=== PATIENT | female | born 1930 | race Caucasian/White ===

== ENCOUNTER 2017-01-26 17:23 | Inpatient (IN) | payer MEDICARE, MEDICAID ==
[~2017-01-26] VITALS: Ht 147.3 cm; Wt 61.7 kg
[~2017-01-26 17:23] MED LIST: ALBU8HFA4 NEB; ASPI81TA31 PO; ATEN25TA PO; BUPR-51 PO; CEFT1PIG2 IV; CHOL100030 PO; HYDR12.5 PO; IPRA0.2S48 NEB; NIAC500T2 PO; OMEP20TA68 PO; SIMV40TA5 PO; STOOL SOFTENER PO
[2017-01-26] MEDS ORDERED: IV NORMAL SALINE 500 ML BAG IV ONE (17:45)
[2017-01-26] MEDS ORDERED: IPRATROPIUM BROMIDE 0.5 MG/2.5 ML NEBU NEB ONE (17:45)
[2017-01-26] MEDS ORDERED: ALBUTEROL SULFATE 2.5 MG/3 ML NEBU NEB ONE (17:45)
--- NOTE | 2017-01-26 17:47 | NUR ---
IV PLACED, 500ML 0.9NS BOLUS INFUSING, MONITOR SHOWS NSR, PO2=92% ON ROOM AIR, PT PRESENTLY RECEIVING RESP TX, PTY'S DAUGHTER AT THE BEDSIDE. LAB ANISHA BLOOD, CXR DONE.
[2017-01-26] MEDS ORDERED: IPRATROPIUM BROMIDE 0.5 MG/2.5 ML NEBU ONE (17:48)
[2017-01-26] MEDS ORDERED: ALBUTEROL SULFATE 2.5 MG/3 ML NEBU ONE (17:48)
[2017-01-26] MEDS ORDERED: BISA10SU12 RC (18:01)
[2017-01-26] MEDS ORDERED: NA P133E RC (18:01)
[2017-01-26] MEDS ORDERED: DOCU-25 PO (18:01)
[2017-01-26] MEDS ORDERED: SIMV20TA6 PO (18:01)
[2017-01-26] MEDS ORDERED: MAGN200T5 PO (18:01)
[2017-01-26] MEDS ORDERED: LEVO25TA2 PO (18:01)
[2017-01-26] MEDS ORDERED: METF500T4 PO (18:01)
[2017-01-26] MEDS ORDERED: MAGN400O4 PO (18:01)
[2017-01-26] MEDS ORDERED: OMEG1CAP PO (18:01)
[2017-01-26] MEDS ORDERED: FURO-152 PO (18:01)
[2017-01-26] MEDS ORDERED: ACET-2154 PO (18:01)
[2017-01-26] MEDS ORDERED: BUDE180A IH (18:01)
[2017-01-26] MEDS ORDERED: DEXT15SY3 PO (18:01)
[2017-01-26 18:05] LABS: BASOPHILS % (AUTO) 0.5 % (0.0-2.0); EOSINOPHILS # (AUTO) 0.5 K/uL (0.0-0.7); EOSINOPHILS % (AUTO) 6.7 % (0.0-7.0); HEMATOCRIT 28.8 % (37.0-47.0); HEMOGLOBIN 9.7 g/dL (12.0-16.0); LYMPHOCYTES % (AUTO) 26.5 % (20.5-51.5); MEAN CORPUSCULAR HGB CONC 34 g/dL (32.0-37.0); MEAN CORPUSCULAR VOLUME 85.9 fL (81.0-99.0); MONOCYTES # (AUTO) 0.9 K/uL (0.1-1.30); MONOCYTES % (AUTO) 11.9 % (0.0-11.0); NEUTROPHILS # (AUTO) 4.1 K/uL (1.8-8.9); NEUTROPHILS % (AUTO) 54.4 % (38.5-71.5); PLATELET COUNT (AUTO) 300 K/uL (150-450); RED BLOOD CELL COUNT(AUTO) 3.35 MIL/uL (4.20-5.40); RED CELL DISTRIBUTION WIDTH 14.8 % (11.5-14.5); WHITE BLOOD COUNT (AUTO) 7.5 K/uL (4.0-11.2)
[2017-01-26] MEDS ORDERED: NITROGLYCERIN OINT 1 GM PACKET TP ONE ×2 (18:15→18:29)
[2017-01-26] MEDS ORDERED: FUROSEMIDE 20 MG/2 ML VIAL IV ONE (18:15)
[2017-01-26 18:17] LABS: CALCIUM 8.7 mg/dL (8.5-10.1); CREATININE 1.3 mg/dL (0.6-1.3)
[2017-01-26 18:26] LABS: TROPONIN I < 0.017 ng/mL (0.00-0.056)
[2017-01-26] MEDS ORDERED: FUROSEMIDE 40 MG/4 ML VIAL ONE (18:29)
[2017-01-26 18:30] LABS: BILIRUBIN,DIRECT 0.1 mg/dL (0.0-0.2); BILIRUBIN,TOTAL 0.3 mg/dL (0.2-1.0); LACTIC ACID 1.4 mmol/L (0.4-2.0); TOTAL PROTEIN, SERUM 7.1 g/dL (6.4-8.2)
--- NOTE | 2017-01-26 18:47 | NUR ---
BELONGINGS LIST DONE, MRSA/NARES ORDERED-SENT, AWAITING FOR [facility]ACE DIRECTOR ACUTE TO CALL BEACK. PT W/O S/S OF DISTRESS, MONITOR SHOWS NSR/PO2=98% ON 2L O2 VIA NASAL CANNULA.
--- NOTE | 2017-01-26 18:58 | NUR ---
PT USES A DIAPER, AND WHEN I SPOKE TO PT'S DAUGHTER THAT WE NEEDED A URINE SAMPLE , SHE STATED THAT URINE WAS TESTED 2 DAYS AGO AND WAS FINE. ALSO STATED THAT SHE DID NOT WANT HER MOM TO BE CATHED.
--- NOTE | 2017-01-26 18:59 | NUR ---
SBAR REPORT TO KHUSHBU RUBALCAVA. PT RESTING.
[2017-01-26 20:15] VITALS: BP 114/65
[2017-01-26 20:20] VITALS: BP 114/65
--- NOTE | 2017-01-26 20:30 | NUR ---
In from ER via [facility], 86 y/o female patient admitted to Telemetry for Dx. CHF. Patient is awake but non verbal at this time. No signs of pain, no SOB but audible wheezing noted. Patient just received Lasix 40 mg IVP upon floor admission. Incontinent of urine, soaking wet diaper noted. No signs of urinary retention. Pericare provided. Egyptian speaking, daughter in room as industrial commercial groundskeeper. Patient is [place] left ear. Vital signs are stable, tele shows NSR 70s. Kept comfortable. Called Epic MD for admission orders. Will continue to monitor.
[2017-01-26] MEDS ORDERED: BISACODYL 10 MG SUPP.RECT RC PRN (21:30)
[2017-01-26] MEDS ORDERED: MAGNESIUM HYDROXIDE 30 ML LIQUID UDC PO PRN (21:30)
[2017-01-26] MEDS ORDERED: MORPHINE SULFATE 2 MG/1 ML DISP.SYRIN IV PRN (21:30)
[2017-01-26] MEDS ORDERED: ACETAMINOPHEN 325 MG TABLET PO PRN (21:30)
[2017-01-26] MEDS ORDERED: ALBUTEROL SULFATE 2.5 MG/ 0.5 ML NEBU NEB PRN (21:30)
[2017-01-26] MEDS ORDERED: ONDANSETRON 4 MG/2 ML VIAL IV PRN (21:30)
[2017-01-26] MEDS ORDERED: FLEET ENEMA 133 ML BOTTLE RC PRN (21:30)
[2017-01-26] MEDS ORDERED: FERROUS SULFATE 325 MG TABEC PO ONE (22:01)
[2017-01-27] MEDS ORDERED: ALBUTEROL SULFATE 2.5 MG/3 ML NEBU ONE (00:38)
[2017-01-27 00:47] VITALS: BP 108/51
[2017-01-27 04:39] VITALS: BP 129/64
--- NOTE | 2017-01-27 08:00 | NUR ---
RESTING IN BED NO SIGNS OF DISTRESS, EXERTIONAL WHEEZING NOTED PATIENT SATURATING 95% RA. NO SIGNS OF PAIN
[2017-01-27 08:06] LABS: ALBUMIN 2.7 g/dL (3.4-5.0); BILIRUBIN,TOTAL 0.3 mg/dL (0.2-1.0); CALCIUM 8.4 mg/dL (8.5-10.1); CREATININE 1.2 mg/dL (0.6-1.3); MAGNESIUM 2.1 mg/dL (1.8-2.4); PHOSPHOROUS 3.5 mg/dL (2.5-4.9); POTASSIUM 3.9 mmol/L (3.5-5.1); TOTAL PROTEIN, SERUM 6.5 g/dL (6.4-8.2)
[2017-01-27 08:13] LABS: THYROID STIMULATING HORMONE 4.279 mIU/mL (0.358-3.740)
[2017-01-27] MEDS: OMEGA-3 FATTY ACIDS/FISH OIL CAPSULE PO SCH (08:18)
[2017-01-27] MEDS: DOCUSATE SODIUM 100 MG CAPSULE PO SCH ×2 (08:18→17:19)
[2017-01-27 08:19] LABS: BASOPHILS % (AUTO) 0.3 % (0.0-2.0); EOSINOPHILS # (AUTO) 0.3 K/uL (0.0-0.7); EOSINOPHILS % (AUTO) 3.7 % (0.0-7.0); HEMATOCRIT 28.1 % (37.0-47.0); HEMOGLOBIN 9.7 g/dL (12.0-16.0); LYMPHOCYTES # (AUTO) 1.5 K/uL (0.8-4.8); LYMPHOCYTES % (AUTO) 18.4 % (20.5-51.5); MEAN CORPUSCULAR HEMOGLOBIN 29.8 uug (27.0-31.0); MEAN CORPUSCULAR HGB CONC 35 g/dL (32.0-37.0); MEAN CORPUSCULAR VOLUME 86.3 fL (81.0-99.0); MONOCYTES # (AUTO) 0.8 K/uL (0.1-1.30); MONOCYTES % (AUTO) 10.4 % (0.0-11.0); NEUTROPHILS # (AUTO) 5.4 K/uL (1.8-8.9); NEUTROPHILS % (AUTO) 67.2 % (38.5-71.5); PLATELET COUNT (AUTO) 256 K/uL (150-450); RED BLOOD CELL COUNT(AUTO) 3.26 MIL/uL (4.20-5.40); RED CELL DISTRIBUTION WIDTH 14.5 % (11.5-14.5)
[2017-01-27] MEDS: LEVOTHYROXINE SODIUM 25 MCG TABLET PO SCH (08:19)
[2017-01-27] MEDS: ASPIRIN 81 MG TAB.CHEW PO SCH (08:19)
[2017-01-27] MEDS: ATENOLOL 25 MG TABLET PO SCH (08:20)
[2017-01-27] MEDS: FUROSEMIDE 20 MG/2 ML VIAL IV SCH (08:20)
[2017-01-27] MEDS ORDERED: METFORMIN HCL 500 MG TABLET PO SCH (09:00)
[2017-01-27 12:00] VITALS: BP 100/55
--- NOTE | 2017-01-27 12:00 | NUR ---
SEEN BY PT/OT SEE NOTES
[2017-01-27 12:05] VITALS: BP 116/63
--- NOTE | 2017-01-27 15:51 | NUR ---
NO ACUTE CHANGE CONTINUE CURRENT TX PLAN
[2017-01-27 16:13] VITALS: BP 119/54
[2017-01-27 18:23] LABS: *OCCULT BLOOD STOOL POSITIVE (NEGATIVE)
[2017-01-27 19:00] VITALS: BP 107/49
[2017-01-27] MEDS: SIMVASTATIN 20 MG TABLET PO SCH (20:45)
[2017-01-27] MEDS: MAGNESIUM OXIDE 400 MG TABLET PO SCH (20:45)
--- NOTE | 2017-01-27 21:00 | NUR ---
Patient resting in bed, no respiratory distress, no SOB. Slight wheezing noted. No signs of discomfort or pain. Will continue to monitor.
[2017-01-27] MEDS: ALBUTEROL SULFATE 2.5 MG/3 ML NEBU NEB PRN (23:34)
[2017-01-28 00:06] VITALS: BP 129/54
[2017-01-28] MEDS: GUAIFENESIN SUGAR FREE 100 MG/5 ML UDC PO PRN (02:12)
--- NOTE | 2017-01-28 03:00 | NUR ---
Coughing on & off productively. Robitussin 10ml was given p.o but patient spit out her meds.
[2017-01-28 04:00] VITALS: BP 115/47
[2017-01-28] MEDS: LEVOTHYROXINE SODIUM 25 MCG TABLET PO SCH (06:09)
--- NOTE | 2017-01-28 07:43 | NUR ---
RESTING WITH EYES CLOSED NO SIGNS OF DISTRESS. NO SIGNS OF PAIN
[2017-01-28] MEDS: OMEGA-3 FATTY ACIDS/FISH OIL CAPSULE PO SCH (08:44)
[2017-01-28] MEDS: DOCUSATE SODIUM 100 MG CAPSULE PO SCH ×2 (08:44→16:28)
[2017-01-28] MEDS: FUROSEMIDE 20 MG/2 ML VIAL IV SCH ×2 (08:44→16:28)
[2017-01-28] MEDS: ASPIRIN 81 MG TAB.CHEW PO SCH (08:44)
[2017-01-28] MEDS: ATENOLOL 25 MG TABLET PO SCH (08:44)
[2017-01-28] MEDS ORDERED: DEXTROSE 50% 50 ML DISP.SYRIN IV PRN (10:45)
[2017-01-28 11:04] VITALS: BP 105/41
[2017-01-28] MEDS: BLOOD SUGAR DIAGNOSTIC 1 EACH STRIP VI SCH ×3 (11:56→21:35)
[2017-01-28] MEDS: INSULIN REGULAR, HUMAN 300 UNIT/3 ML VIAL SQ PRN ×2 (11:57→22:05)
--- NOTE | 2017-01-28 12:00 | NUR ---
ON AND OFF PRODUCTIVE COUGH WITH EXERTIONAL WHEEZING, NO ACUTE DISTRESS CLOSELY MONITORED
[2017-01-28 15:23] VITALS: BP 110/54
[2017-01-28] MEDS: methylPREDNISolone SOD SUCC 40 MG/ML VIAL IV SCH ×2 (16:28→21:09)
--- NOTE | 2017-01-28 16:50 | NUR ---
SEEN BY LOGISTICS LEAD, SEE NOTES
--- NOTE | 2017-01-28 20:30 | NUR ---
IV line infiltrated, placed a new IV line in her right hand [id number]. IVF maintained.
[2017-01-28 20:54] VITALS: BP 127/53
[2017-01-28] MEDS: SIMVASTATIN 20 MG TABLET PO SCH (21:08)
[2017-01-28] MEDS: MAGNESIUM OXIDE 400 MG TABLET PO SCH (21:08)
[2017-01-29] MEDS: GUAIFENESIN SUGAR FREE 100 MG/5 ML UDC PO PRN (01:52)
[2017-01-29] MEDS: ALBUTEROL SULFATE 2.5 MG/3 ML NEBU NEB PRN ×2 (02:04→16:51)
--- NOTE | 2017-01-29 02:33 | NUR ---
Coughing productively O2Sat 90% RA. Patienty refused Oxygen. Breathing treatment provided.
--- NOTE | 2017-01-29 04:52 | NUR ---
Patient sleeping in bed, easily arousable, no respiratory distress. Patient refuses oxygen via NC, saturating 94% RA. Patient kept clean and dry. Call light within reach, bed in low position. Will continue to monitor.
[2017-01-29 05:12] VITALS: BP 134/90
[2017-01-29] MEDS: LEVOTHYROXINE SODIUM 25 MCG TABLET PO SCH (06:16)
--- NOTE | 2017-01-29 07:05 | NUR ---
PATIENT RECEIVED IN ROOM RESTING ALERT, AWAKE IN NO ACUTE DISTRESS. RESPIRATIONS EVEN AND UNLABORED. HOB ELEVATED. DVT AND FALL PRECAUTIONS IN PLACE.
[2017-01-29 07:15] LABS: BASOPHILS % (AUTO) 0.1 % (0.0-2.0); CALCIUM 9.2 mg/dL (8.5-10.1); CREATININE 1.3 mg/dL (0.6-1.3); EOSINOPHILS % (AUTO) 0.2 % (0.0-7.0); HEMATOCRIT 30.4 % (37.0-47.0); HEMOGLOBIN 10.3 g/dL (12.0-16.0); LYMPHOCYTES # (AUTO) 0.9 K/uL (0.8-4.8); LYMPHOCYTES % (AUTO) 13.9 % (20.5-51.5); MAGNESIUM 2.7 mg/dL (1.8-2.4); MEAN CORPUSCULAR HEMOGLOBIN 28.8 uug (27.0-31.0); MEAN CORPUSCULAR HGB CONC 34 g/dL (32.0-37.0); MEAN CORPUSCULAR VOLUME 85.1 fL (81.0-99.0); MONOCYTES # (AUTO) 0.1 K/uL (0.1-1.30); MONOCYTES % (AUTO) 1.5 % (0.0-11.0); NEUTROPHILS # (AUTO) 5.3 K/uL (1.8-8.9); NEUTROPHILS % (AUTO) 84.3 % (38.5-71.5); PHOSPHOROUS 3.6 mg/dL (2.5-4.9); PLATELET COUNT (AUTO) 346 K/uL (150-450); POTASSIUM 3.8 mmol/L (3.5-5.1); RED BLOOD CELL COUNT(AUTO) 3.58 MIL/uL (4.20-5.40); RED CELL DISTRIBUTION WIDTH 14.1 % (11.5-14.5); WHITE BLOOD COUNT (AUTO) 6.3 K/uL (4.0-11.2)
[2017-01-29] MEDS: BLOOD SUGAR DIAGNOSTIC 1 EACH STRIP VI SCH ×4 (07:32→20:29)
[2017-01-29] MEDS: INSULIN REGULAR, HUMAN 300 UNIT/3 ML VIAL SQ PRN ×4 (08:13→20:31)
[2017-01-29] MEDS: FUROSEMIDE 20 MG/2 ML VIAL IV SCH (08:47)
[2017-01-29] MEDS: methylPREDNISolone SOD SUCC 40 MG/ML VIAL IV SCH ×2 (08:47→20:29)
[2017-01-29] MEDS: DOCUSATE SODIUM 100 MG CAPSULE PO SCH ×2 (08:47→17:00)
[2017-01-29] MEDS: OMEGA-3 FATTY ACIDS/FISH OIL CAPSULE PO SCH (08:47)
[2017-01-29] MEDS ORDERED: MAGNESIUM HYDROXIDE 30 ML LIQUID UDC PO PRN (09:30)
[2017-01-29 11:41] VITALS: BP 135/68
[2017-01-29 15:23] VITALS: BP 127/56
--- NOTE | 2017-01-29 16:11 | NUR ---
PATIENT WITH UNPRODUCTIVE COUGH NOTED. LUNGS CTA AFTER COUGHING. NO SOB OBSERVED.
[2017-01-29] MEDS: FUROSEMIDE 20 MG TABLET PO SCH (17:01)
--- NOTE | 2017-01-29 17:40 | NUR ---
PARTICIPATED WITH PT AND TOLERATED WELL.
--- NOTE | 2017-01-29 19:30 | NUR ---
SLEEPING IN BED AT THIS TIME COMFORTABLY, BUT CAN BE AWAKEN. NO ACUTE DISTRESS NOTED. NEEDS ATTENDED. CALL LIGHT WITHIN REACH. WILL CONTINUE TO MONITOR
[2017-01-29 20:21] VITALS: BP 142/71
[2017-01-29] MEDS: SIMVASTATIN 20 MG TABLET PO SCH (20:29)
[2017-01-29] MEDS ORDERED: MAGNESIUM OXIDE 400 MG TABLET PO SCH (21:00)
[2017-01-30] MEDS: GUAIFENESIN SUGAR FREE 100 MG/5 ML UDC PO PRN ×2 (03:01→15:46)
[2017-01-30 05:47] VITALS: BP 153/81
--- NOTE | 2017-01-30 06:10 | NUR ---
SLEPT INTERMITTENTLY DURING THE SHIFT. NO ACUTE DISTRESS NOTED. ALL DUE MEDS GIVEN ORDERED. NEEDS ATTENDED. REMAINED CALM THROUGH OUT THE SHIFT. KEPT CLEAN AND DRY. TURNED AND REPOSITIONED. SAFETY MAINTAINED. CALL LIGHT WITHIN REACH
[2017-01-30] MEDS: LEVOTHYROXINE SODIUM 25 MCG TABLET PO SCH (06:21)
[2017-01-30] MEDS: BLOOD SUGAR DIAGNOSTIC 1 EACH STRIP VI SCH ×2 (06:21→12:06)
--- NOTE | 2017-01-30 07:20 | NUR ---
PATIENT RECEIVED IN ROOM RESTING WITH EYES CLOSED IN NO ACUTE DISTRESS. RESPIRATIONS EVEN AND UNLABORED. NO COUGH NOTED. DVT PUMPS AND FALL PRECAUTIONS IN PLACE.
[2017-01-30] MEDS: DOCUSATE SODIUM 100 MG CAPSULE PO SCH (08:26)
[2017-01-30] MEDS: OMEGA-3 FATTY ACIDS/FISH OIL CAPSULE PO SCH (08:26)
[2017-01-30] MEDS: FUROSEMIDE 20 MG TABLET PO SCH (08:26)
[2017-01-30] MEDS: INSULIN REGULAR, HUMAN 300 UNIT/3 ML VIAL SQ PRN ×2 (08:34→12:11)
[2017-01-30 11:48] VITALS: BP 134/68
[2017-01-30] MEDS ORDERED: LEVO500T15 PO (13:13)
[2017-01-30] MEDS ORDERED: FURO-151 PO (13:13)
[2017-01-30] MEDS ORDERED: METF500T4 PO (13:13)
--- NOTE | 2017-01-30 14:30 | NUR ---
PARTICIPATED WITH PT AND TOLERATED WELL.
--- NOTE | 2017-01-30 15:05 | NUR ---
DISCHARGING PATIENT BACK TO [facility] IN A STABLE CONDITION. SBAR REPORT GIVEN TO COOKIE RUBALCAVA. DISCHARGE INSTRUCTIONS PROVIDED. LIST OF BELONGINGS SINGED. AMBULANCE ETA AT [phone].
--- NOTE | 2017-01-30 16:20 | NUR ---
IV REMOVED, PRESSURE APPLIED AND HEMOSTASIS ACHIEVED. LEAVING BY AMBULANCE AT THIS TIME.
[2017-01-30] MEDS ORDERED: FUROSEMIDE 20 MG TABLET PO SCH (17:00)
[2017-01-30] MEDS ORDERED: FUROSEMIDE 40 MG TABLET PO SCH (17:00)
== END 2017-01-30 16:50 | DRG 291 ==
LOC: ER 17:29 → TELE 19:45 → MED 01-28 18:59
PROVIDERS: ADMIT Internal Medicine; ATTEND Internal Medicine
DX: I11.0 Hypertensive heart disease with heart failure (principal); E43 Unspecified severe protein-calorie malnutrition; G93.40 Encephalopathy, unspecified; J44.0 Chronic obstructive pulmonary disease with (acute) lower respiratory infection; D68.59 Other primary thrombophilia; I50.33 Acute on chronic diastolic (congestive) heart failure; J20.8 Acute bronchitis due to other specified organisms; E78.5 Hyperlipidemia, unspecified; K21.9 Gastro-esophageal reflux disease without esophagitis; J42 Unspecified chronic bronchitis; J45.909 Unspecified asthma, uncomplicated; F02.80 Dementia in other diseases classified elsewhere, unspecified severity, without behavioral disturbance, psychotic disturbance, mood disturbance, and anxiety; G30.9 Alzheimer's disease, unspecified; F32.9 Major depressive disorder, single episode, unspecified; Z68.28 Body mass index [BMI] 28.0-28.9, adult; R19.5 Other fecal abnormalities; E11.9 Type 2 diabetes mellitus without complications
CPT/HCPCS: 36415; 70030-TC; 71010; 82378; 83550; 83605; 83735; 84100; 84443; 85025; 85730; 87040; 87400; 93005; 93307; 94640; 97001; 97110; 97116; 97530; A4663; J1815; J1940; J2920; J3590; J7040

== ENCOUNTER 2017-12-22 19:59 | Inpatient (IN) | payer MEDICARE, MEDICAID ==
[~2017-12-22] VITALS: Ht 157.5 cm; Wt 62.1 kg
[2017-12-22 11:45] VITALS: BP 108/62
[~2017-12-22 19:59] MED LIST changes: +ACET-2154 PO; -ALBU8HFA4 NEB; +BISA10SU12 RC; +BUDE180A IH; -BUPR-51 PO; -CEFT1PIG2 IV; -CHOL100030 PO; +CHOL100045 PO; +DEXT15SY3 PO; +DOCU-141 PO; +FURO-151 PO; -HYDR12.5 PO; -IPRA0.2S48 NEB; +LEVO25TA2 PO; +LEVO500T2 PO; +MAGN200T5 PO; +MAGN400O6 PO; +METF500T4 PO; +NA P133E RC; -NIAC500T2 PO; +OMEG1CAP PO; -OMEP20TA68 PO; +SIMV20TA6 PO; -SIMV40TA5 PO; -STOOL SOFTENER PO
[2017-12-22] MEDS ORDERED: METF10002 PO (20:15)
[2017-12-22] MEDS ORDERED: CARV3.12 PO (20:15)
[2017-12-22] MEDS ORDERED: DOCU-141 PO (20:15)
[2017-12-22] MEDS ORDERED: CRAN500T2 PO (20:15)
[2017-12-22] MEDS ORDERED: ALBU2.5V38 IH (20:15)
[2017-12-22] MEDS ORDERED: ALBUTEROL SULFATE 2.5 MG/3 ML NEBU NEB ONE (21:00)
[2017-12-22] MEDS ORDERED: ACETAMINOPHEN 650 MG SUPP.RECT RC ONE ×2 (21:00→21:15)
[2017-12-22] MEDS ORDERED: ACETAMINOPHEN 325 MG SUPP RC ONE (21:00)
[2017-12-22 21:10] LABS: BASOPHILS # (AUTO) 0.1 K/uL (0.0-8.0); BASOPHILS % (AUTO) 0.4 % (0.0-2.0); EOSINOPHILS % (AUTO) 0.1 % (0.0-7.0); HEMATOCRIT 36.9 % (31.2-41.9); HEMOGLOBIN 12.3 g/dL (10.9-14.3); LYMPHOCYTES # (AUTO) 1.6 K/uL (20.0-40.0); LYMPHOCYTES % (AUTO) 12.3 % (20.5-51.5); MEAN CORPUSCULAR HEMOGLOBIN 28.8 uug (24.7-32.8); MEAN CORPUSCULAR HGB CONC 33 g/dL (32.3-35.6); MEAN CORPUSCULAR VOLUME 86.6 fL (75.5-95.3); MONOCYTES # (AUTO) 1.7 K/uL (2.0-10.0); MONOCYTES % (AUTO) 13.4 % (0.0-11.0); NEUTROPHILS # (AUTO) 9.5 K/uL (1.8-8.9); NEUTROPHILS % (AUTO) 73.8 % (38.5-71.5); PLATELET COUNT (AUTO) 238 K/uL (179-408); RED BLOOD CELL COUNT(AUTO) 4.26 MIL/uL (3.63-4.92); WHITE BLOOD COUNT (AUTO) 12.9 K/uL (3.8-11.8)
[2017-12-22] MEDS ORDERED: ALBUTEROL SULFATE 2.5 MG/3 ML NEBU ONE (21:14)
[2017-12-22 21:18] LABS: CARBON DIOXIDE 27 mmol/L (21-32); CHLORIDE 105 mmol/L (98-107); CREATININE 1.1 mg/dL (0.6-1.3); GLUCOSE 142 mg/dL (74-106); POTASSIUM 3.8 mmol/L (3.5-5.1); UREA NITROGEN, BLOOD 21 mg/dL (7-18)
[2017-12-22 21:30] LABS: ALANINE AMINOTRANSFERASE 17 U/L (14-59); ALKALINE PHOSPHATASE 82 U/L (50-136); ASPARTATE AMINOTRANSFERASE 20 U/L (15-37); BILIRUBIN,DIRECT 0.1 mg/dL (0.0-0.2); BILIRUBIN,TOTAL 0.8 mg/dL (0.2-1.0); TOTAL PROTEIN, SERUM 7.1 g/dL (6.4-8.2)
[2017-12-22 22:11] LABS: *BILIRUBIN,URIN NEGATIVE (NEGATIVE); *BLOOD, URINE 1+ (NEGATIVE); *CLARITY,URINE CLEAR (CLEAR); *COLOR,URINE YELLOW (YELLOW); *KETONES,URINE TRACE (NEGATIVE); *PROTEIN,URINE 1+ (NEGATIVE); *UROBILINOGEN,URINE 0.2 E.U./dl (NORMAL); LEUKOCYTE ESTERASE ,URINE NEGATIVE (NEGATIVE); NITRITE, URINE NEGATIVE (NEGATIVE); UGLUCOSE NEGATIVE (NEGATIVE)
[2017-12-22 22:17] LABS: RBC,URINE 0-3 /HPF (0-3); SQUAMOUS EPITHELIAL CELL,UR FEW /HPF (NONE SEEN); WBC,URINE 0-3 /HPF (0-3)
[2017-12-22 22:18] LABS: BACTERIA,URINE RARE /HPF (NONE SEEN)
[2017-12-22] MEDS ORDERED: LEVOFLOXACIN 750 MG/D5W 150 ML PIGGYBACK IV ONE (23:15)
[2017-12-22] MEDS ORDERED: LEVOFLOXACIN 750MG/D5W 150 ML IV ONE (23:41)
[2017-12-23] MEDS ORDERED: BISACODYL 10 MG SUPP.RECT RC PRN (00:15)
[2017-12-23] MEDS ORDERED: ONDANSETRON 4 MG/2 ML VIAL IV PRN (00:15)
[2017-12-23] MEDS ORDERED: ACETAMINOPHEN 325 MG TABLET PO PRN (00:15)
[2017-12-23] MEDS ORDERED: Z GUARD REMEDY PASTE 57 GM TUBE TOP PRN (00:15)
[2017-12-23] MEDS ORDERED: HYDROCODONE/APAP 5-325MG TABLET PO PRN (00:15)
[2017-12-23] MEDS ORDERED: ZOLPIDEM 5 MG TABLET PO PRN (00:15)
[2017-12-23] MEDS ORDERED: ALBUTEROL SULFATE 2.5 MG/ 0.5 ML NEBU NEB PRN (00:30)
[2017-12-23] MEDS ORDERED: DEXTROSE 50% 50 ML DISP.SYRIN IV PRN (00:30)
[2017-12-23] MEDS ORDERED: IPRATROPIUM BROMIDE 0.5 MG/2.5 ML NEBU NEB PRN (00:30)
[2017-12-23] MEDS: ENOXAPARIN SODIUM 30 MG/0.3 ML DISP.SYRIN SQ SCH ×2 (02:21→22:04)
[2017-12-23 04:49] VITALS: BP 112/55
[2017-12-23] MEDS: LEVOTHYROXINE SODIUM 25 MCG TABLET PO SCH (06:16)
[2017-12-23] MEDS: BLOOD SUGAR DIAGNOSTIC 1 EACH STRIP VI SCH ×4 (06:17→22:18)
[2017-12-23] MEDS ORDERED: Medication Not On Formulary EA (Metformin Hcl 1,000 MG) PO SCH (07:30)
[2017-12-23] MEDS: CHOLECALCIFEROL 1,000 UNIT TABLET PO SCH (09:00)
[2017-12-23] MEDS: ASPIRIN 81 MG TAB.CHEW PO SCH (09:00)
[2017-12-23] MEDS ORDERED: FUROSEMIDE 40 MG TABLET PO SCH (09:00)
[2017-12-23] MEDS: OMEGA-3 FATTY ACIDS/FISH OIL CAPSULE PO SCH (09:00)
[2017-12-23 11:34] VITALS: BP 115/53
[2017-12-23] MEDS ORDERED: FUROSEMIDE 20 MG/2 ML VIAL IV SCH (12:00)
[2017-12-23 15:24] VITALS: BP 136/63
[2017-12-23] MEDS: METFORMIN HCL 500 MG TABLET PO SCH (17:03)
[2017-12-23] MEDS: IV D5 1/2 NS 1000 ML 1,000 ML IV PRN (17:05)
[2017-12-23 20:00] VITALS: BP 111/64
[2017-12-23] MEDS: SIMVASTATIN 20 MG TABLET PO SCH (22:03)
[2017-12-23] MEDS: Z GUARD REMEDY PASTE 57 GM TUBE TOP SCH (22:05)
[2017-12-24 04:46] VITALS: BP 152/74
[2017-12-24] MEDS: LEVOTHYROXINE SODIUM 25 MCG TABLET PO SCH (06:01)
[2017-12-24] MEDS: BLOOD SUGAR DIAGNOSTIC 1 EACH STRIP VI SCH ×4 (06:45→21:05)
[2017-12-24 07:00] LABS: BASOPHILS % (AUTO) 0.6 % (0.0-2.0); EOSINOPHILS % (AUTO) 0.5 % (0.0-7.0); HEMATOCRIT 36.2 % (31.2-41.9); LYMPHOCYTES # (AUTO) 1.4 K/uL (20.0-40.0); LYMPHOCYTES % (AUTO) 22.4 % (20.5-51.5); MEAN CORPUSCULAR HGB CONC 33 g/dL (32.3-35.6); MEAN CORPUSCULAR VOLUME 87.5 fL (75.5-95.3); MONOCYTES % (AUTO) 15.6 % (0.0-11.0); NEUTROPHILS # (AUTO) 3.7 K/uL (1.8-8.9); NEUTROPHILS % (AUTO) 60.9 % (38.5-71.5); PLATELET COUNT (AUTO) 214 K/uL (179-408); RED BLOOD CELL COUNT(AUTO) 4.14 MIL/uL (3.63-4.92); WHITE BLOOD COUNT (AUTO) 6.1 K/uL (3.8-11.8)
[2017-12-24 07:16] LABS: CARBON DIOXIDE 27 mmol/L (21-32); CHLORIDE 106 mmol/L (98-107); CHOLESTEROL 158 mg/dL (<200); GLUCOSE 119 mg/dL (74-106); HDL CHOLESTEROL 68 mg/dL (40-60); MAGNESIUM 1.8 mg/dL (1.8-2.4); PHOSPHOROUS 2.6 mg/dL (2.5-4.9); POTASSIUM 3.6 mmol/L (3.5-5.1); TRIGLYCERIDES 182 MG/DL (30-150); UREA NITROGEN, BLOOD 22 mg/dL (7-18)
[2017-12-24 08:34] LABS: NEUTROPHILS % (MANUAL) 67 % (42-75)
[2017-12-24 08:35] LABS: LYMPHOCYTES % (MANUAL) 25 % (20-40); MONOCYTES % (MANUAL) 8 % (2-10)
[2017-12-24] MEDS: METFORMIN HCL 500 MG TABLET PO SCH ×2 (08:37→17:11)
[2017-12-24] MEDS: CHOLECALCIFEROL 1,000 UNIT TABLET PO SCH (08:37)
[2017-12-24] MEDS: OMEGA-3 FATTY ACIDS/FISH OIL CAPSULE PO SCH (08:37)
[2017-12-24] MEDS: ASPIRIN 81 MG TAB.CHEW PO SCH (08:37)
[2017-12-24] MEDS: Z GUARD REMEDY PASTE 57 GM TUBE TOP SCH ×2 (08:38→21:02)
[2017-12-24] MEDS: ENOXAPARIN SODIUM 30 MG/0.3 ML DISP.SYRIN SQ SCH (08:38)
[2017-12-24] MEDS: BOOST PLUS 237 ML LIQUID (RICH CHOCOLATE) PO SCH ×3 (08:40→17:11)
[2017-12-24] MEDS ORDERED: FUROSEMIDE 20 MG/2 ML VIAL IV SCH (09:00)
[2017-12-24] MEDS ORDERED: FUROSEMIDE 40 MG TABLET PO SCH (09:00)
[2017-12-24] MEDS: INSULIN REGULAR, HUMAN 300 UNIT/3 ML VIAL SQ PRN (11:28)
[2017-12-24 12:11] VITALS: BP 142/82
[2017-12-24 15:52] VITALS: BP 124/64
[2017-12-24] MEDS: IV D5 1/2 NS 1000 ML 1,000 ML IV PRN (19:11)
[2017-12-24] MEDS ORDERED: LEVOFLOXACIN 750MG/D5W 750 MG in PREMIXED 1 EACH IV SCH (20:00)
[2017-12-24] MEDS: SIMVASTATIN 20 MG TABLET PO SCH (21:01)
[2017-12-25] MEDS: LEVOTHYROXINE SODIUM 25 MCG TABLET PO SCH (06:01)
[2017-12-25] MEDS: BLOOD SUGAR DIAGNOSTIC 1 EACH STRIP VI SCH ×4 (06:35→20:22)
[2017-12-25] MEDS: METFORMIN HCL 500 MG TABLET PO SCH ×2 (08:20→17:03)
[2017-12-25] MEDS: FUROSEMIDE 40 MG TABLET PO SCH (08:20)
[2017-12-25] MEDS: OMEGA-3 FATTY ACIDS/FISH OIL CAPSULE PO SCH (08:20)
[2017-12-25] MEDS: CHOLECALCIFEROL 1,000 UNIT TABLET PO SCH (08:20)
[2017-12-25] MEDS: BOOST PLUS 237 ML LIQUID (RICH CHOCOLATE) PO SCH ×3 (08:21→16:53)
[2017-12-25] MEDS: ASPIRIN 81 MG TAB.CHEW PO SCH (08:21)
[2017-12-25] MEDS: ENOXAPARIN SODIUM 40 MG/0.4 ML DISP.SYRIN SQ SCH (08:26)
[2017-12-25] MEDS: Z GUARD REMEDY PASTE 57 GM TUBE TOP SCH ×2 (08:31→20:18)
[2017-12-25 11:04] VITALS: BP 139/67
[2017-12-25] MEDS: INSULIN REGULAR, HUMAN 300 UNIT/3 ML VIAL SQ PRN ×2 (11:20→20:24)
[2017-12-25] MEDS: CARVEDILOL 3.125 MG TABLET PO SCH ×2 (12:56→17:12)
[2017-12-25 15:00] VITALS: BP 102/54
[2017-12-25 20:00] VITALS: BP 114/73
[2017-12-25] MEDS: SIMVASTATIN 20 MG TABLET PO SCH (20:18)
[2017-12-26 04:30] VITALS: BP 135/62
[2017-12-26] MEDS: LEVOTHYROXINE SODIUM 25 MCG TABLET PO SCH (06:17)
[2017-12-26] MEDS: BLOOD SUGAR DIAGNOSTIC 1 EACH STRIP VI SCH ×2 (06:35→11:44)
[2017-12-26] MEDS: OMEGA-3 FATTY ACIDS/FISH OIL CAPSULE PO SCH (08:00)
[2017-12-26] MEDS: FUROSEMIDE 40 MG TABLET PO SCH (08:00)
[2017-12-26] MEDS: CHOLECALCIFEROL 1,000 UNIT TABLET PO SCH (08:01)
[2017-12-26] MEDS: METFORMIN HCL 500 MG TABLET PO SCH (08:01)
[2017-12-26] MEDS: ASPIRIN 81 MG TAB.CHEW PO SCH (08:06)
[2017-12-26] MEDS: BOOST PLUS 237 ML LIQUID (RICH CHOCOLATE) PO SCH ×2 (08:06→11:45)
[2017-12-26] MEDS: CARVEDILOL 3.125 MG TABLET PO SCH (08:06)
[2017-12-26] MEDS: ENOXAPARIN SODIUM 40 MG/0.4 ML DISP.SYRIN SQ SCH (08:07)
[2017-12-26] MEDS: Z GUARD REMEDY PASTE 57 GM TUBE TOP SCH (08:08)
[2017-12-26 11:30] VITALS: BP 127/68
== END 2017-12-26 13:15 | DRG 682 ==
LOC: ER 19:59 → TELE 23:35 → MED 12-23 10:10
PROVIDERS: ATTEND Internal Medicine
DX: N17.0 Acute kidney failure with tubular necrosis (principal); G93.41 Metabolic encephalopathy; I50.33 Acute on chronic diastolic (congestive) heart failure; E86.0 Dehydration; I11.0 Hypertensive heart disease with heart failure; R62.7 Adult failure to thrive; E78.5 Hyperlipidemia, unspecified; F03.90 Unspecified dementia, unspecified severity, without behavioral disturbance, psychotic disturbance, mood disturbance, and anxiety; K21.9 Gastro-esophageal reflux disease without esophagitis; F32.9 Major depressive disorder, single episode, unspecified; I35.2 Nonrheumatic aortic (valve) stenosis with insufficiency; Z79.82 Long term (current) use of aspirin
CPT/HCPCS: 36415; 70030-TC; 70450; 71045; 83605; 83735; 84100; 84443; 85025; 85730; 87040; 87086; 87400; 92526; 92610; 93005; 93307; A4663; J1650; J1815; J1940; J1956; J3490; J3590